=== PATIENT | male | born 1950 | race Caucasian/White ===

== ENCOUNTER 2023-07-20 05:44 | Day surgery (SDC) | payer MEDICARE, SELFPAY ==
[2023-07-20] MEDS: Lactated Ringers 1,000 ML 15 ML IV (06:27)
[2023-07-20 06:28] VITALS: BP 131/64; PULSE 59; RESP 16; TEMP 36.1; O2SAT 100; BMI 271.0
--- NOTE | 2023-07-20 07:24 | H&P.OPEN ---
[facility] - General General Date of Service: 07/20/23 [facility] Narrative DALTON LYNNE, is a 73 M who presents for EGD and colonoscopy due to history of polyps as well as reflux. Patient did change from Pepcid to omeprazole and states that his reflux is well-controlled?took 40 mg x 1 week and then went to 20 mg p.o. daily. Otherwise denies any changes. office visit 06/08/23: 72-year-old male presents due to history of colon polyps previous colonoscopy 2020 in April. For surveillance colonoscopy. Patient states he has bowel movements daily denies any blood. Patient does state that he has reflux symptoms daily does take Pepcid. Patient states he has had EGD but was over 10 years ago. Patient denies any family history of colon cancer. [facility] Medical History (Updated 07/14/23 @ 09:36 by Gilma Garcia) Cancer Alcohol use Arthritis Syncope Gastric reflux Former smoker History of stress test Personal history of colonic polyps Acid reflux Skin cancer High cholesterol HTN (hypertension) Home Medications ?Medication ?Instructions ?Recorded ?Last Taken ?Type ascorbic acid (vitamin C) 500 mg 500 mg PO DAILY 06/08/23 07/19/23 History capsule aspirin 81 mg tablet,delayed 81 mg PO DAILY 06/08/23 07/16/23 History release atorvastatin 40 mg tablet 40 mg PO QDAY 06/08/23 07/19/23 History cholecalciferol (vitamin D3) 25 25 mcg PO BID 06/08/23 07/19/23 History mcg (1,000 unit) capsule fluticasone propionate 50 1 spray intranasal DAILY PRN nasal 06/08/23 Unknown History mcg/actuation nasal congestion spray,suspension (Allergy Relief (fluticasone)) loratadine 10 mg tablet (Claritin) 10 mg PO DAILY 06/08/23 07/19/23 History lysine 500 mg tablet 500 mg PO DAILY 06/08/23 07/19/23 History multivitamin 1 tab PO DAILY 06/08/23 07/19/23 History valsartan 320 mg tablet 320 mg PO QDAY 06/08/23 07/19/23 History omeprazole 20 mg capsule,delayed 20 mg PO DAILY 07/14/23 07/19/23 History release Allergy/AdvReac Type Severity Reaction Status Date / Time Penicillins Allergy Unknown PT UNSURE Verified 06/03/24 06:25 OF REACTION Family History (Updated 06/08/23 @ 08:45 by Radha Singh) Father Heart disease Myocardial infarction Brother Heart disease Myocardial infarction Uncle Heart disease Myocardial infarction Grandmother Hypertension Mother Aneurysm Surgical History (Updated 06/08/23 @ 08:44 by Radha Singh) Skin cancer, basal cell S/P nasal surgery Social History (Updated 06/08/23 @ 08:45 by Radha Singh) Smoking Status: Former smoker alcohol intake: current Past Medical/Surgical History Planned Operation Planned Operative Procedure(s): COLONOSCOPY/EGD Previous Hospitalizations/Surgeries HX Hospitalizations: No Any Problems With Anesthesia: No You/Your Family Experience Fever (Hyperthermia) With Anes: No Cholinesterase deficiency: No Cardiovascular Hx Hypertension: Yes (CONTROLLED ON MED) Respiratory Hx Sleep Apnea: No Hx Respiratory Tract Infection/Cold (presently): No Do You Snore Loudly (louder than talking or can be heard): Yes Do You Often Feel Tired/ Fatigued/ Sleepy Dring Daytime?: No Has Anyone Observed You Stop Breathing During Sleep?: No Result (for STOP score): Positive Smoking Status: Former smoker Neurological Does patient have nerve stimulator: No Miscellaneous Recent Exposure to Contagious Disease: No Allergies Penicillins Allergy (Unknown, Verified 07/20/23 06:25) PT UNSURE OF REACTION childhood Discharge Is Pt Admitted From a [facility], or a Senior Living: No After D/C, Where Do you Plan to Go: Return Home Vital Signs Vital Signs Vital Signs: 07/20/23 06:28 07/20/23 06:28 Temperature 96.9 F L Temperature Source Temporal Pulse Rate 59 L Respiratory Rate 16 Respiratory Pattern Normal Blood Pressure 131/64 H Blood Pressure Mean 86 Blood Pressure Source Monitor Blood Pressure Position Sitting Blood Pressure Location Left Arm Pulse Ox 100 Oxygen Delivery Method Room Air Weight Weight: 1730 lb 10.059 oz Body Mass Index (BMI) 271.0 Physical Exam Const alert, oriented x3 and no apparent distress HEENT normocephalic and head/scalp atraumatic Resp normal respiratory effort Cardio regular rate GI soft to palpation and non-tender; Negative for non-distended Palpation: Negative for guarding Extremity no clubbing, cyanosis or edema Skin no rashes or lesions noted Neuro CN's II-XII intact bilaterally Psych mental status grossly normal Assessment & Plan Assessment/Plan (1) Personal history of colonic polyps: (2) Acid reflux: Surgery Risks - Colonoscopy I discussed with the patient the risks of the procedure: Yes Risks Include but are not Limited To: Plan for an EGD and colonoscopy -- risks include but are not limited to: Bleeding, perforation requiring further surgery, inability to complete colonoscopy requiring barium enema.
--- NOTE | 2023-07-20 07:30 | IMM_PTH ---
PATIENT: DALTON LYNNE LOC: EN U#:[id number] AGE/SX: 73/M ROOM: RE07/20/[address]: Dr. Leatha Barbosa MD : 1950 BED: DIS: 07/20/2023 SPEC #: [id number] RECD: 07/20/23 11:28 STATUS: AGUSTINA FROILAN #: [id number] AISHA: 07/20/23 07:[address]: Leatha Barbosa DEPT: IMMUNOHISTOCHEMISTRY RECD BY: Addy Conley Tissues: A - Gastric mucous membrane Procedures: H Pylori (initial) P53 (initial) KI-67 (initial) PHYSICIAN & INSTITUTION [place] [id number] SPECIMEN INFORMATION: Tissue Source: A- Antrum biopsy Clinical Info: Reflux, personal history of polyps Specimen Number: [id number] CPT code: 46265,75457q5 METHODOLOGY: Deparaffinized sections of prefer/formalin-fixed tissue or PAP/DQ stained slides are incubated with monoclonal/polyclonal antibodies/oligonucleotide probes. Localization is made via biotin free immunoperoxidase method. Appropriate controls are performed and reacted as expected. Results on target cell population are indicated in the following table: RESULTS: ANTIBODY / CLONE RESULT Block A H Pylori (polyclonal) negative P53 (DO-7) positive, wild to indeterminate pattern Ki-67 (30-9) positive, low These tests were developed and their performance characteristics determined by [facility]. They may not have been cleared or approved by the U.S. Food and Drug Administration. The FDA has determined that such clearance or approval is not necessary. The above immunohistochemical/dualISH markers are ordered and reviewed by the Pathologist. INTERPRETATION: A. Gastric antrum, biopsy: No evidence of dysplasia. PAUL/ 07/22/2023
--- NOTE | 2023-07-20 07:30 | COLBX_PTH ---
PATIENT: DALTON LYNNE LOC: EN U#:[id number] AGE/SX: 73/M ROOM: RE07/20/[address]: Dr. Leatha Barbosa MD : 1950 BED: DIS: 07/20/2023 SPEC #: [id number] RECD: 07/20/23 10:18 STATUS: AGUSTINA MCGOVERN #: [id number] AISHA: 07/20/23 07:[address]: Leatha Barbosa DEPT: SURGICAL PATHOLOGY RECD BY: July Stack Tissues: A - Stomach, NOS B - Gastric mucous membrane C - Cecum, NOS D - Sigmoid colon biopsy Procedures: Special Stain Group I Surgery Specimen Level IV Alcian Blue/PAS (control) HEADER OPERATION: Colonoscopy with polyp biopsy, EGD with biopsy PRE-OP DIAGNOSIS: Reflux, personal history of polyps TISSUE SUBMITTED: A- Antrum biopsy, B- Gastroesophageal junction biopsy, C- Cecal polyp, D- Sigmoid polyp biopsy MICROSCOPIC DIAGNOSIS A. Gastric antrum, biopsy: Intestinal metaplasia. No evidence of dysplasia. Mild chronic inflammation. See comment. B. Gastroesophageal junction, biopsy: Gastric mucosa with chronic inflammation. No evidence of goblet cell metaplasia. See comment. C. Cecal polyp, biopsy: Polypoid fragment of benign colonic mucosa. See comment. D. Sigmoid colon polyp, biopsy: Tubular adenoma. / 07/21/2023 COMMENT A. The results of immunohistochemistry for Helicobacter pylori will be reported separately ([id number]). Alcian blue/PAS stain with matched control supports the above diagnosis. B. Alcian blue/PAS stain with matched control supports the above diagnosis. C. Neither hyperplastic nor adenomatous change is identified. Clinical correlation is suggested. MICROSCOPIC DESCRIPTION Slides are reviewed. GROSS DESCRIPTION A. Received in fixative is one container labeled with the patient's name and designated Antrum biopsy. The specimen consists of one irregular fragment of light awad soft tissue that measures 0.4 x 0.3 x 0.1 cm. The specimen is totally submitted in one cassette. B. Received in fixative is one container labeled with the patient's name and designated GE junction biopsy. The specimen consists of one irregular fragment of light awad soft tissue that measures 0.3 x 0.3 x 0.1 cm. The specimen is totally submitted in one cassette. C. Received in fixative is one container labeled with the patient's name and designated Cecal polyp. The specimen consists of one irregular fragment of light awad soft tissue that measures 0.3 x 0.2 x 0.1 cm. The specimen is totally submitted in one cassette. D. Received in fixative is one container labeled with the patient's name and designated Sigmoid polyp. The specimen consists of one irregular fragment of light awad soft tissue that measures 0.4 x 0.4 x 0.1 cm. The specimen is totally submitted in one cassette. IZZY/ 07/20/2023 TC:3 CPT:23084d3,48678
[2023-07-20 08:06] VITALS: BP 131/64; BP 132/81; PULSE 65; RESP 16; TEMP 36.3; O2SAT 98
--- NOTE | 2023-07-20 08:06 | OP.CCLET_ITS ---
07/20/2023 Out Of [facility] Doctor Re : Upper GI endoscopy procedure for Lauro Kulkarni Dear [facility] Doctor This procedure was performed on Thursday, July 20, 2023. My impressions and recommendations are as follows: Impressions : - Z-line variable, 40 cm from the incisors. Biopsied. - Erythematous mucosa in the gastric body and antrum. Biopsied. - Normal examined duodenum. Recommendations : - Await pathology results. - Discharge patient to home. - Resume previous diet. - Use Prilosec (omeprazole) 40 mg PO daily. - Continue present medications. My findings are described in the full procedure note, which is enclosed. If I can be of further assistance, please feel free to contact me at Doctor phone number(s): , Work: . Sincerely, MD Leatha Mcdaniel MD 07/20/2023 8:05:17 AM This report has been signed electronically.
--- NOTE | 2023-07-20 08:06 | OP.EGD_ITS ---
Patient Name: Lauro Kulkarni Procedure Date: 07/20/2023 7:14 AM Date of : 1950 Age: 73 Procedure: Upper GI endoscopy Indications: Heartburn Providers: Leatha Barbosa MD Referring MD: Leatha Barbosa MD Medicines: Monitored Anesthesia Care Patient Profile: This is a 73 year old male. Complications: No immediate complications. Procedure: Pre-Anesthesia Assessment: - Prior to the procedure, a History and Physical was performed, and patient medications and allergies were reviewed. The patient's tolerance of previous anesthesia was also reviewed. The risks and benefits of the procedure and the sedation options and risks were discussed with the patient. All questions were answered, and informed consent was obtained. Prior Anticoagulants: The patient has taken no anticoagulant or antiplatelet agents. ASA Grade Assessment: Per anesthesia. After reviewing the risks and benefits, the patient was deemed in satisfactory condition to undergo the procedure. After obtaining informed consent, the endoscope was passed under direct vision. Throughout the procedure, the patient's blood pressure, pulse, and oxygen saturations were monitored continuously. The Colonoscope was introduced through the mouth, and advanced to the second part of duodenum. The upper GI endoscopy was accomplished without difficulty. The patient tolerated the procedure well. Scope In: 7:34:27 AM Scope Out: 7:39:43 AM Total Procedure Duration Time 0 hours 5 minutes 16 seconds Findings: The Z-line was variable and was found 40 cm from the incisors. Biopsies were taken with a cold forceps for histology. Moderately erythematous mucosa without bleeding was found in the gastric body and in the gastric antrum. Biopsies were taken with a cold forceps for histology. Biopsies were taken with a cold forceps for Helicobacter pylori cultures. The examined duodenum was normal. The cardia and gastric fundus were normal on retroflexion. Impression: - Z-line variable, 40 cm from the incisors. Biopsied. - Erythematous mucosa in the gastric body and antrum. Biopsied. - Normal examined duodenum. Recommendation: - Await pathology results. - Discharge patient to home. - Resume previous diet. - Use Prilosec (omeprazole) 40 mg PO daily. - Continue present medications. Procedure Code(s): --- Professional --- 62074, Esophagogastroduodenoscopy, flexible, transoral; with biopsy, single or multiple Diagnosis Code(s): --- Professional --- K22.89, Other specified disease of esophagus R12, Heartburn K31.89, Other diseases of stomach and duodenum CPT copyright 2021 [employer] [place] [employer]. All rights reserved. The codes documented in this report are preliminary and upon linux system administrator review may be revised to meet current compliance requirements. MD Leatha Mcdaniel MD 07/20/2023 8:05:17 AM This report has been signed electronically. Number of Addenda: 0 Note Initiated On: 07/20/2023 7:14 AM
--- NOTE | 2023-07-20 08:08 | OP.COLON_ITS ---
Patient Name: Lauro Kulkarni Procedure Date: 07/20/2023 7:40 AM Date of : 1950 Age: 73 Procedure: Colonoscopy Indications: High risk colon cancer surveillance: Personal history of colonic polyps Providers: Leatha Barbosa MD Referring MD: Leatha Barbosa MD Medicines: Monitored Anesthesia Care Patient Profile: This is a 73 year old male. Last Colonoscopy: 2020. Complications: No immediate complications. Procedure: Pre-Anesthesia Assessment: - Prior to the procedure, a History and Physical was performed, and patient medications and allergies were reviewed. The patient's tolerance of previous anesthesia was also reviewed. The risks and benefits of the procedure and the sedation options and risks were discussed with the patient. All questions were answered, and informed consent was obtained. Prior Anticoagulants: The patient has taken no anticoagulant or antiplatelet agents. ASA Grade Assessment: Per anesthesia. After reviewing the risks and benefits, the patient was deemed in satisfactory condition to undergo the procedure. After I obtained informed consent, the scope was passed under direct vision. Throughout the procedure, the patient's blood pressure, pulse, and oxygen saturations were monitored continuously. The Colonoscope was introduced through the anus and advanced to the cecum, identified by the appendiceal orifice, ileocecal valve and palpation. The colonoscopy was performed without difficulty. The patient tolerated the procedure well. The quality of the bowel preparation was good. Scope In: 7:41:06 AM Scope Withdrawal Time 0 hours 10 minutes 19 seconds Scope Out: 7:59:17 AM Total Procedure Duration Time 0 hours 18 minutes 11 seconds Findings: The perianal and digital rectal examinations were normal. Two sessile polyps were found in the sigmoid colon and cecum. The polyps were less than 5 mm in size. These polyps were removed with a cold biopsy forceps. Resection and retrieval were complete. Scattered small-mouthed diverticula were found in the sigmoid colon. The exam was otherwise without abnormality on direct and retroflexion views. Impression: - Two less than 5 mm polyps in the sigmoid colon and in the cecum, removed with a cold biopsy forceps. Resected and retrieved. - Diverticulosis in the sigmoid colon. - The examination was otherwise normal on direct and retroflexion views. Recommendation: - Discharge patient to home. - Resume previous diet. - Continue present medications. - Await pathology results. - Repeat colonoscopy in 5 years for surveillance based on pathology results. Procedure Code(s): --- Professional --- 90289, PT, Colonoscopy, flexible; with biopsy, single or multiple Diagnosis Code(s): --- Professional --- Z86.010, Personal history of colonic polyps D12.5, Benign neoplasm of sigmoid colon D12.0, Benign neoplasm of cecum K57.30, Diverticulosis of large intestine without perforation or abscess without bleeding CPT copyright 2021 [employer]. All rights reserved. The codes documented in this report are preliminary and upon medical insurance coder review may be revised to meet current compliance requirements. MD Leatha Mcdaniel MD 07/20/2023 8:08:38 AM This report has been signed electronically. Number of Addenda: 0 Note Initiated On: 07/20/2023 7:40 AM
--- NOTE | 2023-07-20 08:09 | OP.CCLET_ITS ---
07/20/2023 Out Of [facility] Doctor Re : Colonoscopy procedure for Lauro Kulkarni Dear [facility] Doctor This procedure was performed on Thursday, July 20, 2023. My impressions and recommendations are as follows: Impressions : - Two less than 5 mm polyps in the sigmoid colon and in the cecum, removed with a cold biopsy forceps. Resected and retrieved. - Diverticulosis in the sigmoid colon. - The examination was otherwise normal on direct and retroflexion views. Recommendations : - Discharge patient to home. - Resume previous diet. - Continue present medications. - Await pathology results. - Repeat colonoscopy in 5 years for surveillance based on pathology results. My findings are described in the full procedure note, which is enclosed. If I can be of further assistance, please feel free to contact me at Doctor phone number(s): , Work: . Sincerely, MD Leatha Mcdaniel MD 07/20/2023 8:08:38 AM This report has been signed electronically.
[2023-07-20 08:10] VITALS: BP 123/71; BP 131/64; PULSE 61; RESP 16; O2SAT 98
[2023-07-20 08:15] VITALS: BP 130/76; BP 131/64; PULSE 61; RESP 16; O2SAT 98
[2023-07-20 08:20] VITALS: BP 131/64; BP 144/77; PULSE 54; RESP 16; TEMP 36.2; O2SAT 99
[2023-07-20 08:52] VITALS: BP 131/64
== END 2023-07-20 08:55 | disposition home or self-care (01) ==
LOC: EN 05:45 → AC 05:46
PROVIDERS: Referring Provider Surgery; Visit Provider Surgery
PROC: 0DJD8ZZ Inspection of Lower Intestinal Tract, Via Natural or Artificial Opening Endoscopic (ICD-10-PCS; CPT 45378; principal; 2023-07-20 07:25)
DX: Z12.11 Encounter for screening for malignant neoplasm of colon (principal); K21.9 Gastro-esophageal reflux disease without esophagitis; E78.00 Pure hypercholesterolemia, unspecified; K57.30 Diverticulosis of large intestine without perforation or abscess without bleeding; Z79.82 Long term (current) use of aspirin; Z87.891 Personal history of nicotine dependence; K63.5 Polyp of colon; Z86.010 Personal history of colon polyps; I10 Essential (primary) hypertension; Z79.899 Other long term (current) drug therapy; Z85.828 Personal history of other malignant neoplasm of skin; K31.89 Other diseases of stomach and duodenum; K22.89 Other specified disease of esophagus; D12.0 Benign neoplasm of cecum; K31.A19 Gastric intestinal metaplasia without dysplasia, unspecified site; K29.50 Unspecified chronic gastritis without bleeding
CPT/HCPCS: 43239; 45380; 88305; 88312; 88342; J7120; J2405